=== PATIENT | male | born 1950 | race Caucasian/White ===

== ENCOUNTER → 2018-04-17 | Outpatient (CLI) | payer MEDICARE ==
[~2018-04-17] MED LIST: IOPAMIDOL 370 MG/ML 200 ML INFUS..BTL INJ ONE; SODIUM CHLORIDE 0.9% 50ML 50 ML ONE
[2018-04-17 16:02] LABS: BLOOD UREA NITROGEN 13 mg/dL (7-26); BUN/CREATININE RATIO 15 (6-25); CREATININE, SERUM 0.87 mg/dL (0.72-1.25); EST GLOMERULAR FILTRATION RATE > 60 ML/MIN (60-)
--- NOTE | 2018-04-18 13:47 | Diagnostic Imaging Report ---
EXAMINATION: CT scan of the chest with contrast. TECHNIQUE: Helical CT images of the chest were performed from the lung apices to the level of the adrenal glands after the intravenous administration of 100 cc of Omnipaque 300. Coronal and sagittal reformatted images were obtained.Dose modulation, iterative reconstruction, and/or weight based adjustment of the mA/kV was utilized to reduce the radiation dose to as low as reasonably achievable. COMPARISON: None. CLINICAL HISTORY:Smoker, shortness of breath DISCUSSION: LINES/TUBES: None. LUNGS AND AIRWAYS: Centrilobular emphysema. No concerning pulmonary nodules or masses. Bilateral compressive atelectasis in the lower lungs, greater on the left. PLEURA: Moderate left and small right pleural effusion. HEART AND MEDIASTINUM: The thyroid gland is normal. Coronary artery calcifications. LYMPH NODES: There is no mediastinal, hilar or axillary lymphadenopathy. ABDOMEN: Limited contrast-enhanced views of the upper abdomen show no abnormality within the visualized liver, spleen, pancreas, or kidneys. The adrenal glands are normal. BONES AND SOFT TISSUES: Multilevel degenerative disc disease. IMPRESSION: Centrilobular emphysema. No concerning nodules or masses. Moderate left and small right pleural effusion. Signed by: Dr. Ajay Chamberlain M.D. on 04/18/2018 1:44 PM
== END ==
LOC: CT 15:14
PROVIDERS: ATTEND Family Medicine
DX: R06.02 Shortness of breath (principal); J18.1 Lobar pneumonia, unspecified organism; J81.0 Acute pulmonary edema; F17.200 Nicotine dependence, unspecified, uncomplicated
CPT/HCPCS: 36415; 71260; 82565; 84520; Q9967